=== PATIENT | female | born 1935 | race Caucasian/White ===

== ENCOUNTER 2017-07-14 19:25 | Inpatient (IN) ==
[2017-07-14] MEDS ORDERED: SODIUM CHLORIDE 0.9% 1,000 ML IV STA ×2 (20:55→23:28)
[2017-07-14] MEDS ORDERED: ACETAMINOPHEN 500 MG TABLET PO STA (20:55)
[2017-07-14] MEDS ORDERED: cefTRIAXone 1,000 MG in SODIUM CHLORIDE 0.9% 100 ML IV STA (20:55)
[2017-07-14] MEDS ORDERED: cefTRIAXone 1,000 MG VIAL ONE (21:03)
[2017-07-14] MEDS ORDERED: ACETAMINOPHEN 500 MG TABLET ONE (21:04)
[2017-07-14 21:07] LABS: Basophils % 0.4 % (0.0-0.8); Hematocrit 40.7 VOL% (35.7-47.0); Hemoglobin 13.1 GM/DL (12.0-16.0); Immature Granulocytes % 0.4 %; Immature Granulocytes Absolute 0.05 #; Lymphocytes # 1.3 10*3/uL (1.4-4.0); Lymphocytes % 11.7 % (21.3-54.2); Mean Corpuscular HGB Conc 32.2 GM/DL (32-36); Mean Corpuscular Hemoglobin 31 PG (27-34); Mean Corpuscular Volume 94.7 FL (87-102); Mean Platelet Volume 11.7 FL (9.6-12.0); Monocytes # 0.9 10*3/uL (0.11-0.8); Monocytes % 8.1 % (1.7-12.7); Neutrophils # 9.1 10*3/uL (1.4-7.4); Neutrophils % 79.4 % (38.7-73.9); Platelet Count 230 T/CUMM (130-400); Red Cell Distribution Width 14.8 % (9.3-17.3); White Blood Count 11.4 T/CUMM (4-12)
[2017-07-14 21:15] LABS: INR 1.2; PT Patient Result 12.4 SECS
[2017-07-14 21:16] LABS: Albumin 3.3 G/DL (3.4-5.0); Bilirubin,Total 0.5 MG/DL (0.2-1.0); Calcium 8.4 MG/DL (8.5-10.1); Osmolality,Calculated 327.9 MOS/KG (273-304); Potassium 4.8 MMOL/L (3.5-5.1); Total Protein 6.3 G/DL (6.4-8.3)
[2017-07-14 21:30] LABS: Lactic Acid 1.7 MMOL/L (0.4-2.0)
[2017-07-14 21:31] LABS: Apearance,Urine Clear (Clear); Urine Color Yellow (Yellow)
[2017-07-14 21:34] LABS: Glucose,Urine (UA) Negative (Negative); Ketones,Urine Negative (Negative); Nitrite,Urine Negative (Negative); Protein,Urine 1+ MG/DL; Urine Specific Gravity 1.025 (1.001-1.035)
[2017-07-14 21:35] LABS: Bilirubin,Urine Negative (Negative); Blood, Urine Negative (Negative); Ictotest,Urine Negative (Negative); Urine Urobilinogen 0.5 EU/DL (0.2-1.0)
[2017-07-14 21:37] LABS: RBC,Urine 0 /HPF (0-4)
[2017-07-14 21:38] LABS: Squamous Epithelial Cell,Urine Few /HPF (0-10); WBC,Urine 2 /HPF (0-6)
[2017-07-15] MEDS ORDERED: ONDANSETRON 4 MG/2 ML VIAL IV PRN (00:21)
[2017-07-15] MEDS ORDERED: ACETAMINOPHEN 500 MG TABLET PO PRN (00:31)
[2017-07-15] MEDS ORDERED: metroNIDAZOLE 500 MG/100 ML PREMIX IV ONE (01:11)
[2017-07-15] MEDS: SODIUM CHLORIDE 0.45% 1,000 ML IV SCH ×3 (03:10→16:48)
[2017-07-15] MEDS: metroNIDAZOLE INJ 500 MG in PREMIX 1 EACH IV SCH ×4 (03:10→23:29)
[2017-07-15] MEDS: MORPHINE 2 MG/1 ML SYRINGE IV PRN ×2 (05:33→20:21)
[2017-07-15] MEDS ORDERED: VANCOMYCIN 50 MG/ML 60 ML/BOTTLE PO SCH (06:00)
[2017-07-15 06:57] LABS: Basophils % 0.3 % (0.0-0.8); Hematocrit 38.3 VOL% (35.7-47.0); Hemoglobin 11.9 GM/DL (12.0-16.0); Immature Granulocytes % 0.5 %; Immature Granulocytes Absolute 0.05 #; Lymphocytes # 1.3 10*3/uL (1.4-4.0); Lymphocytes % 12.5 % (21.3-54.2); Mean Corpuscular HGB Conc 31.1 GM/DL (32-36); Mean Corpuscular Hemoglobin 30 PG (27-34); Mean Corpuscular Volume 96.2 FL (87-102); Mean Platelet Volume 11.2 FL (9.6-12.0); Monocytes % 9.3 % (1.7-12.7); Neutrophils % 77.4 % (38.7-73.9); Platelet Count 181 T/CUMM (130-400); Red Blood Count 3.98 MC/CUMM (3.8-5.5); Red Cell Distribution Width 14.9 % (9.3-17.3); White Blood Count 10.4 T/CUMM (4-12)
[2017-07-15 07:30] LABS: Calcium 7.4 MG/DL (8.5-10.1); Osmolality,Calculated 337.5 MOS/KG (273-304); Potassium 3.9 MMOL/L (3.5-5.1)
[2017-07-15] MEDS: VANCOMYCIN 50 MG/ML 60 ML/BOTTLE PO SCH ×3 (08:42→20:17)
[2017-07-15] MEDS: ENOXAPARIN 30 MG/0.3 ML SYRINGE SUBCUT SCH (08:42)
[2017-07-15] MEDS ORDERED: ALPRAZolam 0.5 MG TABLET PO PRN (09:52)
[2017-07-15] MEDS ORDERED: LORazepam 1 MG TABLET PO PRN (09:52)
[2017-07-15] MEDS ORDERED: ENTACAPONE PO SCH (13:00)
[2017-07-15] MEDS ORDERED: LEVODOPA PO SCH (13:00)
[2017-07-15] MEDS ORDERED: CARBIDOPA PO SCH (13:00)
[2017-07-15] MEDS: ACETAMINOPHEN 325 MG TABLET PO PRN ×2 (14:38→20:17)
[2017-07-15] MEDS: BACITRACIN OINT 0.9 GM PACK TOP SCH (16:47)
[2017-07-15] MEDS: CARBIDOPA/LEVODOPA CR 25-100 MG TABLET PO SCH ×2 (17:16→21:34)
[2017-07-15] MEDS: ATORVASTATIN 20 MG TABLET PO SCH (20:16)
[2017-07-15] MEDS: AMITRIPTYLINE 25 MG TABLET PO SCH (20:17)
[2017-07-15] MEDS: QUEtiapine 25 MG TABLET PO SCH (20:17)
[2017-07-15] MEDS: ZINC OXIDE PASTE 113 GM TUBE TOP SCH (21:33)
[2017-07-16] MEDS ORDERED: IBUPROFEN 600 MG TABLET PO ONE (00:07)
[2017-07-16] MEDS: cefTRIAXone 1,000 MG in SYRINGE 1 EACH IV SCH ×2 (00:38→12:28)
[2017-07-16] MEDS: SODIUM CHLORIDE 0.45% 1,000 ML IV SCH ×4 (00:41→17:46)
[2017-07-16] MEDS: VANCOMYCIN 50 MG/ML 60 ML/BOTTLE PO SCH ×4 (01:12→20:22)
[2017-07-16] MEDS: metroNIDAZOLE INJ 500 MG in PREMIX 1 EACH IV SCH ×2 (04:28→12:29)
[2017-07-16 08:40] LABS: Basophils % 0.3 % (0.0-0.8); Eosinophils % 0.3 % (0.00-10.9); Hemoglobin 11.1 GM/DL (12.0-16.0); Immature Granulocytes % 0.8 %; Lymphocytes # 1.3 10*3/uL (1.4-4.0); Lymphocytes % 10.9 % (21.3-54.2); Mean Corpuscular HGB Conc 30.8 GM/DL (32-36); Mean Corpuscular Hemoglobin 30 PG (27-34); Mean Corpuscular Volume 98.4 FL (87-102); Mean Platelet Volume 11.1 FL (9.6-12.0); Monocytes # 0.7 10*3/uL (0.11-0.8); Monocytes % 5.7 % (1.7-12.7); Neutrophils # 9.7 10*3/uL (1.4-7.4); Platelet Count 147 T/CUMM (130-400); Red Blood Count 3.66 MC/CUMM (3.8-5.5); White Blood Count 11.9 T/CUMM (4-12)
[2017-07-16 09:06] LABS: Band Neutrophils 1 % (0-10); Hypochromasia 1+; Lymphocytes 8 % (20-55); Ovalocytes Slight; Platelet Estimate Normal; Segmented Neutrophils 86 % (50-85); Total Cells Counted 100
[2017-07-16 09:07] LABS: Giant Platelets Few
[2017-07-16 09:12] LABS: Albumin 2.4 G/DL (3.4-5.0); Bilirubin,Total 0.5 MG/DL (0.2-1.0); Calcium 6.9 MG/DL (8.5-10.1); Osmolality,Calculated 325.3 MOS/KG (273-304); Potassium 3.8 MMOL/L (3.5-5.1); Total Protein 5.1 G/DL (6.4-8.3)
[2017-07-16] MEDS: ZINC SULFATE 220 MG CAPSULE PO SCH (09:16)
[2017-07-16] MEDS: ASPIRIN EC 81 MG TABLET PO SCH (09:16)
[2017-07-16] MEDS: CARBIDOPA/LEVODOPA CR 25-100 MG TABLET PO SCH ×4 (09:16→20:26)
[2017-07-16] MEDS: MULTIVITAMIN (CENTRUM) TABLET PO SCH (09:16)
[2017-07-16] MEDS: SERTRALINE 50 MG TABLET PO SCH (09:16)
[2017-07-16] MEDS: ASCORBIC ACID 500 MG TABLET PO SCH (09:16)
[2017-07-16] MEDS: CHOLECALCIFEROL 1,000 UNIT TABLET PO SCH (09:16)
[2017-07-16] MEDS: ENOXAPARIN 30 MG/0.3 ML SYRINGE SUBCUT SCH (09:17)
[2017-07-16] MEDS: ZINC OXIDE PASTE 113 GM TUBE TOP SCH ×2 (09:24→20:22)
[2017-07-16] MEDS: BACITRACIN OINT 0.9 GM PACK TOP SCH (09:24)
[2017-07-16] MEDS: AMITRIPTYLINE 25 MG TABLET PO SCH (20:22)
[2017-07-16] MEDS: ALPRAZolam 0.5 MG TABLET PO SCH (20:22)
[2017-07-16] MEDS: MORPHINE 2 MG/1 ML SYRINGE IV PRN (20:22)
[2017-07-16] MEDS: ATORVASTATIN 20 MG TABLET PO SCH (20:22)
[2017-07-16] MEDS: QUEtiapine 25 MG TABLET PO SCH (20:22)
[2017-07-17] MEDS: VANCOMYCIN 50 MG/ML 60 ML/BOTTLE PO SCH (01:09)
[2017-07-17] MEDS: SODIUM CHLORIDE 0.45% 1,000 ML IV SCH (01:12)
[2017-07-17 06:52] LABS: Basophils % 0.3 % (0.0-0.8); Eosinophils # 0.1 10*3/uL (0.0-0.87); Eosinophils % 1.2 % (0.00-10.9); Hematocrit 33.7 VOL% (35.7-47.0); Hemoglobin 10.7 GM/DL (12.0-16.0); Immature Granulocytes % 0.5 %; Immature Granulocytes Absolute 0.04 #; Lymphocytes # 1.1 10*3/uL (1.4-4.0); Lymphocytes % 15.3 % (21.3-54.2); Mean Corpuscular HGB Conc 31.8 GM/DL (32-36); Mean Corpuscular Hemoglobin 31 PG (27-34); Mean Corpuscular Volume 97.1 FL (87-102); Mean Platelet Volume 11.3 FL (9.6-12.0); Monocytes # 0.4 10*3/uL (0.11-0.8); Monocytes % 5.3 % (1.7-12.7); Neutrophils # 5.7 10*3/uL (1.4-7.4); Neutrophils % 77.4 % (38.7-73.9); Platelet Count 130 T/CUMM (130-400); Red Blood Count 3.47 MC/CUMM (3.8-5.5); Red Cell Distribution Width 15.1 % (9.3-17.3); White Blood Count 7.3 T/CUMM (4-12)
[2017-07-17 07:21] LABS: Alanine Aminotransferase < 9 U/L (13-56); Albumin 2.2 G/DL (3.4-5.0); Alkaline Phosphatase 121 U/L (45-117); Aspartate Amino Transferase 108 U/L (0-37); Blood Urea Nitrogen 55 MG/DL (7-18); Glucose 81 MG/DL (74-106); Osmolality,Calculated 320.3 MOS/KG (273-304); Potassium 3.8 MMOL/L (3.5-5.1); Sodium 155 MMOL/L (136-145); Total Protein 4.6 G/DL (6.4-8.3)
[2017-07-17 07:28] LABS: Band Neutrophils 2 % (0-10); Burr Cells Slight; Giant Platelets Few; Hypochromasia 1+; Lymphocytes 13 % (20-55); Ovalocytes Slight; Platelet Estimate Normal; Segmented Neutrophils 81 % (50-85); Total Cells Counted 100
[2017-07-17] MEDS: ASPIRIN EC 81 MG TABLET PO SCH (09:52)
[2017-07-17] MEDS: ASCORBIC ACID 500 MG TABLET PO SCH (09:52)
[2017-07-17] MEDS: MULTIVITAMIN (CENTRUM) TABLET PO SCH (09:52)
[2017-07-17] MEDS: BACITRACIN OINT 0.9 GM PACK TOP SCH (09:52)
[2017-07-17] MEDS: SODIUM BICARBONATE 650 MG TABLET PO SCH ×3 (09:52→20:25)
[2017-07-17] MEDS: ZINC SULFATE 220 MG CAPSULE PO SCH (09:52)
[2017-07-17] MEDS: SERTRALINE 50 MG TABLET PO SCH (09:52)
[2017-07-17] MEDS: ALPRAZolam 0.5 MG TABLET PO SCH ×2 (09:52→20:25)
[2017-07-17] MEDS: CARBIDOPA/LEVODOPA CR 25-100 MG TABLET PO SCH ×4 (09:52→20:25)
[2017-07-17] MEDS: ZINC OXIDE PASTE 113 GM TUBE TOP SCH ×2 (09:53→20:44)
[2017-07-17] MEDS: CHOLECALCIFEROL 1,000 UNIT TABLET PO SCH (09:53)
[2017-07-17] MEDS: ENOXAPARIN 30 MG/0.3 ML SYRINGE SUBCUT SCH (09:53)
[2017-07-17] MEDS: DEXTROSE 5% NACL 0.22% 1,000 ML IV SCH ×3 (10:54→19:00)
[2017-07-17] MEDS ORDERED: cefTRIAXone 1,000 MG in SYRINGE 1 EACH IV SCH (12:00)
[2017-07-17] MEDS: MORPHINE 2 MG/1 ML SYRINGE IV PRN (20:23)
[2017-07-17] MEDS: AMITRIPTYLINE 25 MG TABLET PO SCH (20:25)
[2017-07-17] MEDS: ATORVASTATIN 20 MG TABLET PO SCH (20:25)
[2017-07-17] MEDS: QUEtiapine 25 MG TABLET PO SCH (20:25)
[2017-07-18] MEDS: DEXTROSE 5% NACL 0.22% 1,000 ML IV SCH ×3 (03:01→19:01)
[2017-07-18 06:38] LABS: Basophils % 0.2 % (0.0-0.8); Eosinophils # 0.1 10*3/uL (0.0-0.87); Eosinophils % 0.8 % (0.00-10.9); Hematocrit 31.3 VOL% (35.7-47.0); Immature Granulocytes % 0.5 %; Immature Granulocytes Absolute 0.03 #; Lymphocytes % 15.9 % (21.3-54.2); Mean Corpuscular HGB Conc 31.9 GM/DL (32-36); Mean Corpuscular Hemoglobin 31 PG (27-34); Mean Corpuscular Volume 95.4 FL (87-102); Mean Platelet Volume 11.9 FL (9.6-12.0); Monocytes # 0.5 10*3/uL (0.11-0.8); Monocytes % 7.9 % (1.7-12.7); Neutrophils # 4.7 10*3/uL (1.4-7.4); Neutrophils % 74.7 % (38.7-73.9); Platelet Count 144 T/CUMM (130-400); Red Blood Count 3.28 MC/CUMM (3.8-5.5); Red Cell Distribution Width 14.9 % (9.3-17.3); White Blood Count 6.3 T/CUMM (4-12)
[2017-07-18 07:02] LABS: Band Neutrophils 1 % (0-10); Burr Cells Slight; Giant Platelets Few; Hypochromasia 1+; Lymphocytes 11 % (20-55); Ovalocytes Slight; Platelet Estimate Normal; Segmented Neutrophils 78 % (50-85); Total Cells Counted 100
[2017-07-18 07:18] LABS: Calcium 7.4 MG/DL (8.5-10.1); Potassium 3.7 MMOL/L (3.5-5.1)
[2017-07-18] MEDS: ASPIRIN EC 81 MG TABLET PO SCH (09:37)
[2017-07-18] MEDS: MULTIVITAMIN (CENTRUM) TABLET PO SCH (09:37)
[2017-07-18] MEDS: CARBIDOPA/LEVODOPA CR 25-100 MG TABLET PO SCH ×4 (09:37→22:27)
[2017-07-18] MEDS: SERTRALINE 50 MG TABLET PO SCH (09:37)
[2017-07-18] MEDS: ASCORBIC ACID 500 MG TABLET PO SCH (09:37)
[2017-07-18] MEDS: SODIUM BICARBONATE 650 MG TABLET PO SCH ×3 (09:37→22:27)
[2017-07-18] MEDS: ENOXAPARIN 30 MG/0.3 ML SYRINGE SUBCUT SCH (09:38)
[2017-07-18] MEDS: ALPRAZolam 0.5 MG TABLET PO SCH ×2 (09:38→22:27)
[2017-07-18] MEDS: BACITRACIN OINT 0.9 GM PACK TOP SCH (09:38)
[2017-07-18] MEDS: ZINC SULFATE 220 MG CAPSULE PO SCH (09:38)
[2017-07-18] MEDS: CHOLECALCIFEROL 1,000 UNIT TABLET PO SCH (09:38)
[2017-07-18] MEDS: ZINC OXIDE PASTE 113 GM TUBE TOP SCH ×2 (09:53→22:26)
[2017-07-18] MEDS: ACETAMINOPHEN 325 MG TABLET PO PRN (14:26)
[2017-07-18] MEDS ORDERED: BENZONATATE 100 MG CAPSULE PO PRN (16:27)
[2017-07-18] MEDS: AMITRIPTYLINE 25 MG TABLET PO SCH (22:27)
[2017-07-18] MEDS: QUEtiapine 25 MG TABLET PO SCH (22:27)
[2017-07-18] MEDS: ATORVASTATIN 20 MG TABLET PO SCH (22:27)
[2017-07-19 06:05] LABS: Calcium 7.3 MG/DL (8.5-10.1); Osmolality,Calculated 298.4 MOS/KG (273-304); Potassium 3.4 MMOL/L (3.5-5.1)
[2017-07-19] MEDS ORDERED: POTASSIUM CHLORIDE 20 MEQ/15 ML UDCUP PO ONE (08:01)
[2017-07-19] MEDS: DEXTROSE 5% NACL 0.22% 1,000 ML IV SCH (08:48)
[2017-07-19] MEDS ORDERED: POTASSIUM CHLORIDE 20 MEQ/15 ML UDCUP PER TUBE PRN (08:59)
[2017-07-19] MEDS ORDERED: FUROSEMIDE 20 MG/2 ML VIAL IV ONE (09:30)
[2017-07-19] MEDS: SODIUM BICARBONATE 650 MG TABLET PO SCH ×3 (11:05→21:58)
[2017-07-19] MEDS: ALPRAZolam 0.5 MG TABLET PO SCH ×2 (11:05→21:57)
[2017-07-19] MEDS: MULTIVITAMIN (CENTRUM) TABLET PO SCH (11:05)
[2017-07-19] MEDS: BACITRACIN OINT 0.9 GM PACK TOP SCH (11:05)
[2017-07-19] MEDS: ENOXAPARIN 30 MG/0.3 ML SYRINGE SUBCUT SCH (11:05)
[2017-07-19] MEDS: ASPIRIN EC 81 MG TABLET PO SCH (11:06)
[2017-07-19] MEDS: CHOLECALCIFEROL 1,000 UNIT TABLET PO SCH (11:06)
[2017-07-19] MEDS: CARBIDOPA/LEVODOPA CR 25-100 MG TABLET PO SCH ×4 (11:06→21:57)
[2017-07-19] MEDS: ZINC SULFATE 220 MG CAPSULE PO SCH (11:06)
[2017-07-19] MEDS: ASCORBIC ACID 500 MG TABLET PO SCH (11:07)
[2017-07-19] MEDS: MEGESTROL 400 MG/10 ML UDCUP PO SCH ×2 (11:09→21:58)
[2017-07-19] MEDS: SERTRALINE 50 MG TABLET PO SCH (11:09)
[2017-07-19] MEDS: ZINC OXIDE PASTE 113 GM TUBE TOP SCH ×2 (11:09→21:58)
[2017-07-19] MEDS: AMITRIPTYLINE 25 MG TABLET PO SCH (21:57)
[2017-07-19] MEDS: ATORVASTATIN 20 MG TABLET PO SCH (21:58)
[2017-07-19] MEDS: QUEtiapine 25 MG TABLET PO SCH (22:01)
[2017-07-19] MEDS: ACETAMINOPHEN 325 MG TABLET PO PRN (22:10)
[2017-07-20 05:42] LABS: Basophils % 0.1 % (0.0-0.8); Eosinophils # 0.1 10*3/uL (0.0-0.87); Eosinophils % 0.9 % (0.00-10.9); Hematocrit 30.8 VOL% (35.7-47.0); Hemoglobin 9.7 GM/DL (12.0-16.0); Immature Granulocytes % 0.4 %; Immature Granulocytes Absolute 0.03 #; Lymphocytes # 1.5 10*3/uL (1.4-4.0); Lymphocytes % 21.3 % (21.3-54.2); Mean Corpuscular HGB Conc 31.5 GM/DL (32-36); Mean Corpuscular Hemoglobin 30 PG (27-34); Mean Corpuscular Volume 95.1 FL (87-102); Mean Platelet Volume 11.6 FL (9.6-12.0); Monocytes # 0.9 10*3/uL (0.11-0.8); Monocytes % 12.7 % (1.7-12.7); Neutrophils # 4.4 10*3/uL (1.4-7.4); Neutrophils % 64.6 % (38.7-73.9); Platelet Count 162 T/CUMM (130-400); Red Blood Count 3.24 MC/CUMM (3.8-5.5); Red Cell Distribution Width 14.4 % (9.3-17.3); White Blood Count 6.9 T/CUMM (4-12)
[2017-07-20 06:16] LABS: Microcytosis 1+; Ovalocytes Slight
[2017-07-20 06:17] LABS: Platelet Estimate Adequate
[2017-07-20 06:18] LABS: Calcium 7.6 MG/DL (8.5-10.1); Osmolality,Calculated 294.4 MOS/KG (273-304); Potassium 3.5 MMOL/L (3.5-5.1)
[2017-07-20] MEDS: CHOLECALCIFEROL 1,000 UNIT TABLET PO SCH (10:16)
[2017-07-20] MEDS: CARBIDOPA/LEVODOPA CR 25-100 MG TABLET PO SCH ×4 (10:16→21:11)
[2017-07-20] MEDS: ZINC SULFATE 220 MG CAPSULE PO SCH (10:16)
[2017-07-20] MEDS: BACITRACIN OINT 0.9 GM PACK TOP SCH (10:16)
[2017-07-20] MEDS: MEGESTROL 400 MG/10 ML UDCUP PO SCH ×2 (10:16→21:10)
[2017-07-20] MEDS: SERTRALINE 50 MG TABLET PO SCH (10:16)
[2017-07-20] MEDS: MULTIVITAMIN (CENTRUM) TABLET PO SCH (10:16)
[2017-07-20] MEDS: ASCORBIC ACID 500 MG TABLET PO SCH (10:16)
[2017-07-20] MEDS: ASPIRIN EC 81 MG TABLET PO SCH (10:16)
[2017-07-20] MEDS: ALPRAZolam 0.5 MG TABLET PO SCH ×2 (10:16→21:11)
[2017-07-20] MEDS: ENOXAPARIN 30 MG/0.3 ML SYRINGE SUBCUT SCH (10:17)
[2017-07-20] MEDS: SODIUM BICARBONATE 650 MG TABLET PO SCH ×2 (10:17→16:54)
[2017-07-20] MEDS: ZINC OXIDE PASTE 113 GM TUBE TOP SCH ×2 (10:18→21:11)
[2017-07-20] MEDS: ATORVASTATIN 20 MG TABLET PO SCH (21:11)
[2017-07-20] MEDS: QUEtiapine 25 MG TABLET PO SCH (21:11)
[2017-07-20] MEDS: AMITRIPTYLINE 25 MG TABLET PO SCH (21:11)
[2017-07-21 05:47] LABS: Basophils % 0.2 % (0.0-0.8); Eosinophils # 0.1 10*3/uL (0.0-0.87); Eosinophils % 1.3 % (0.00-10.9); Hematocrit 30.1 VOL% (35.7-47.0); Hemoglobin 9.4 GM/DL (12.0-16.0); Immature Granulocytes % 0.4 %; Immature Granulocytes Absolute 0.02 #; Lymphocytes # 1.2 10*3/uL (1.4-4.0); Lymphocytes % 21.1 % (21.3-54.2); Mean Corpuscular HGB Conc 31.2 GM/DL (32-36); Mean Corpuscular Hemoglobin 30 PG (27-34); Mean Corpuscular Volume 94.4 FL (87-102); Mean Platelet Volume 11.3 FL (9.6-12.0); Monocytes # 0.7 10*3/uL (0.11-0.8); Monocytes % 12.9 % (1.7-12.7); Neutrophils # 3.6 10*3/uL (1.4-7.4); Neutrophils % 64.1 % (38.7-73.9); Platelet Count 178 T/CUMM (130-400); Red Blood Count 3.19 MC/CUMM (3.8-5.5); Red Cell Distribution Width 14.5 % (9.3-17.3); White Blood Count 5.6 T/CUMM (4-12)
[2017-07-21 06:15] LABS: Osmolality,Calculated 294.4 MOS/KG (273-304); Potassium 3.8 MMOL/L (3.5-5.1)
[2017-07-21] MEDS: CARBIDOPA/LEVODOPA CR 25-100 MG TABLET PO SCH ×4 (09:14→21:01)
[2017-07-21] MEDS: ASPIRIN EC 81 MG TABLET PO SCH (09:14)
[2017-07-21] MEDS: ACETAMINOPHEN 325 MG TABLET PO PRN (09:15)
[2017-07-21] MEDS: ZINC SULFATE 220 MG CAPSULE PO SCH (09:15)
[2017-07-21] MEDS: MEGESTROL 400 MG/10 ML UDCUP PO SCH ×2 (09:15→21:01)
[2017-07-21] MEDS: SERTRALINE 50 MG TABLET PO SCH (09:16)
[2017-07-21] MEDS: CHOLECALCIFEROL 1,000 UNIT TABLET PO SCH (09:16)
[2017-07-21] MEDS: MULTIVITAMIN (CENTRUM) TABLET PO SCH (09:16)
[2017-07-21] MEDS: ALPRAZolam 0.5 MG TABLET PO SCH ×2 (09:16→21:01)
[2017-07-21] MEDS: ASCORBIC ACID 500 MG TABLET PO SCH (09:16)
[2017-07-21] MEDS: ZINC OXIDE PASTE 113 GM TUBE TOP SCH ×2 (09:16→21:01)
[2017-07-21] MEDS: ENOXAPARIN 30 MG/0.3 ML SYRINGE SUBCUT SCH (09:17)
[2017-07-21] MEDS: BACITRACIN OINT 0.9 GM PACK TOP SCH (09:17)
[2017-07-21] MEDS: ATORVASTATIN 20 MG TABLET PO SCH (21:00)
[2017-07-21] MEDS: QUEtiapine 25 MG TABLET PO SCH (21:01)
[2017-07-21] MEDS: AMITRIPTYLINE 25 MG TABLET PO SCH (21:01)
[2017-07-22 07:09] LABS: Osmolality,Calculated 295.3 MOS/KG (273-304)
[2017-07-22] MEDS: ALPRAZolam 0.5 MG TABLET PO SCH (10:22)
[2017-07-22] MEDS: CHOLECALCIFEROL 1,000 UNIT TABLET PO SCH (10:22)
[2017-07-22] MEDS: MEGESTROL 400 MG/10 ML UDCUP PO SCH (10:22)
[2017-07-22] MEDS: ASPIRIN EC 81 MG TABLET PO SCH (10:22)
[2017-07-22] MEDS: ZINC SULFATE 220 MG CAPSULE PO SCH (10:22)
[2017-07-22] MEDS: ZINC OXIDE PASTE 113 GM TUBE TOP SCH (10:23)
[2017-07-22] MEDS: BACITRACIN OINT 0.9 GM PACK TOP SCH (10:23)
[2017-07-22] MEDS: SERTRALINE 50 MG TABLET PO SCH (10:23)
[2017-07-22] MEDS: CARBIDOPA/LEVODOPA CR 25-100 MG TABLET PO SCH ×2 (10:23→14:43)
[2017-07-22] MEDS: ENOXAPARIN 30 MG/0.3 ML SYRINGE SUBCUT SCH (10:23)
[2017-07-22] MEDS: ASCORBIC ACID 500 MG TABLET PO SCH (10:23)
[2017-07-22] MEDS: MULTIVITAMIN (CENTRUM) TABLET PO SCH (10:23)
[2017-07-22 11:21] VITALS: BP 152/74
== END 2017-07-22 16:00 | disposition hospice, home (50) | DRG 683 ==
LOC: EDBD → EDUNIT# → N.ED 19:25 → N.EDINP 07-15 00:21 → SUATTDRO 07-15 00:21 → N.5E 07-15 01:19
PROVIDERS: ADMIT Family Medicine; ATTEND Internal Medicine